=== PATIENT | female | born 1985 | race Caucasian/White ===

== ENCOUNTER 2017-05-28 11:18 | Emergency (ER) | payer OTHER ==
[~2017-05-28] VITALS: Ht 165.1 cm; Wt 78.0 kg
[~2017-05-28 11:18] MED LIST: ADDERALL XR30 MG PO; ALYACEN 1/35 PO; AMITRIPTYLIN100 MG PO; BUSPIRONE10 MG PO; CLONAZEPAM1 M1 PO; DARVOCET N-100100 - OR; DOCUSATE SODIU100 MG PO; FIORICET 50-3001 CAP; FLEXERIL5 MG PO; LATUDA60 MG; LYRICA100 MG PO; METHOCARBAM500 MG PO; MULTIVITAMI9 PO; NAPROXEN250 MG PO; NEURONTIN300 MG PO; NO MEDS; PRENATAL1 TA1 PO; RELPAX40 MG PO; TAM75CAP PO; TEMAZEPAM15 MG PO; TENORMIN PO; TOPIRAMATE50 MG PO; TRIAMCINOLON0.5 % EX; TYLENOL 500MG TAB PO
[2017-05-28 12:07] VITALS: BP 114/78
== END 2017-05-28 12:10 | disposition home or self-care (01) | DRG 950 ==
LOC: ED 11:18
DX: Z48.814 Encounter for surgical aftercare following surgery on the teeth or oral cavity (principal)